=== PATIENT | female | born 2000 | race African-American/Black ===

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

== ENCOUNTER 2023-07-12 11:54 | Emergency (ER) | payer MEDICAID, SELFPAY ==
--- OUTSIDE RECORDS SUMMARY | 2023-07-12 12:11 | XMS_ITS | Continuity of Care Document ---
Author Name Unknown Organization [facility] Address [address] [place] [id number] Care Team Providers Care Garbage Truck Driver Name Role Phone Nelly Tanner APRN Primary Care Physician Encounter [facility] NBR [id number] Date(s): 02/25/23 - 02/25/[address] [id number] Discharge Disposition: Home or Self Care Attending Physician: Nelly Tanner APRN Admitting Physician: Nelly Tanner APRN Referring Physician: Nelly Tanner APRN Assessment and Plan Future Scheduled Tests Laboratory* Urinalysis with Microscopic if Indicated 02/25/23 * Urine Culture 02/25/23 Results Laboratory List Name Date Chlamydia trachomatis and Neisseria gono rrhoeae ([facility]) 02/25/23 Test Serum Qual 02/25/23 Urinalysis with Micro if Indicated and C ulture if Indicated 02/25/23 Most recent to oldest [Reference Range]: 1 UA Color LIGHT YELL *NA* (02/25/23 3:51 PM) UA Urobilinogen [0.2] 0.2 (02/25/23 3:51 PM) UA Bili [Negative] Negative (02/25/23 3:51 PM) UA Ketones [Negative] Negative (02/25/23 3:51 PM) UA Leuk Est [Negative] Negative (02/25/23 3:51 PM) UA Nitrite [Negative] Negative (02/25/23 3:51 PM) UA Glucose [Negative] Negative (02/25/23 3:51 PM) UA Protein [Negative] Negative (02/25/23 3:51 PM) UA Blood [Negative] Negative (02/25/23 3:51 PM) UA Spec Grav 1.010 *NA* (02/25/23 3:51 PM) UA pH 6.50 *NA* (02/25/23 3:51 PM) UA Appear [Clear] Clear (02/25/23 3:51 PM) hCG Qual Serum [Negative] Positive *ABN* (02/25/23 3:51 PM) Urine Srce Clean Catch (02/25/23 3:51 PM) Chlamydia trachomatis DNA -[facility] [No t Detected] Not Detected (02/25/23 3:51 PM) Neisseria gonorrhoeae DNA -[facility] [No t Detected] Not Detected (02/25/23 3:51 PM) Orders for Microbiology Reports Name Date Urine Culture 02/25/23 Microbiology Reports TEST:Urine Culture STATUS:Order in Progress BODY SITE: SOURCE:Urine, Clean Catch COLLECTED DATE/TIME:02/25/23 3:51 PM PRELIMINARY REPORT No growth of uropathogens Social History Social History Type Response Sex Female Patient Care team information Care Team Personnel Name: Nelly Tanner APRN Position: Physician Member Role: Primary Care Physician Address: Address: [address] Care Team Related Persons Name: GIOVANNI WOODS Address: [address] Name: GIOVANNI WOODS Address: [address]
[2023-07-12 12:16] VITALS: BP 118/72; PULSE 80; RESP 17; TEMP 36.7; O2SAT 100
--- NOTE | 2023-07-12 12:48 | NUR.NOTE ---
Nursing Note: Pt left without being seen. She did not want to wait.
== END 2023-07-12 12:48 | disposition left against medical advice (07) ==
LOC: ER 12:10
PROVIDERS: PCP Nurse Practitioner Adult Health
DX: Z53.21 Procedure and treatment not carried out due to patient leaving prior to being seen by health care provider (principal)

== ENCOUNTER 2024-01-16 15:40 | Outpatient (CLI) | payer MEDICAID, SELFPAY ==
[2024-01-16 17:00] LABS: HCG Quant, Pregnancy 806 mIU/mL (1-3)
== END 2024-01-16 15:41 | disposition home or self-care (01) ==
LOC: LBO 15:41
PROVIDERS: PCP Nurse Practitioner Adult Health; Visit Provider Nurse Practitioner Family
DX: Z32.01 Encounter for pregnancy test, result positive (principal)
CPT/HCPCS: 36415; 84702

== ENCOUNTER 2024-01-27 15:19 | Outpatient (CLI) | payer MEDICAID, SELFPAY ==
[2024-01-27 15:47] LABS: HCG Quant, Pregnancy 116 mIU/mL (1-3)
== END 2024-01-27 15:20 | disposition home or self-care (01) ==
LOC: LBO 02-05 15:19
PROVIDERS: PCP Nurse Practitioner Adult Health; Visit Provider Nurse Practitioner Family
DX: Z32.01 Encounter for pregnancy test, result positive (principal)
CPT/HCPCS: 36415; 84702